=== PATIENT | female | born 1935 | race Two or more races ===

== ENCOUNTER 2018-01-14 16:23 | Emergency (ER) | payer MEDICARE, MEDICAID ==
[~2018-01-14] VITALS: Ht 157.5 cm; Wt 73.0 kg
[2018-01-14 18:30] VITALS: BP 122/60
== END 2018-01-14 18:38 | disposition home or self-care (01) ==
LOC: ER 16:24
DX: S22.42XA Multiple fractures of ribs, left side, initial encounter for closed fracture (principal); M25.561 Pain in right knee; E11.9 Type 2 diabetes mellitus without complications; F03.90 Unspecified dementia, unspecified severity, without behavioral disturbance, psychotic disturbance, mood disturbance, and anxiety; I10 Essential (primary) hypertension; I25.10 Atherosclerotic heart disease of native coronary artery without angina pectoris; M85.80 Other specified disorders of bone density and structure, unspecified site; Z88.0 Allergy status to penicillin; Z60.2 Problems related to living alone; W18.39XA Other fall on same level, initial encounter; Y93.89 Activity, other specified; Y92.89 Other specified places as the place of occurrence of the external cause; Y99.8 Other external cause status
CPT/HCPCS: 71250-TC; 73564-TC; A4606; Z7610